=== PATIENT | female | born 1950 | race Caucasian/White ===

== ENCOUNTER 2018-01-24 09:49 | Emergency (ER) | payer MEDICARE, BC ==
[2018-01-24 10:19] VITALS: BP 138/77
--- NOTE | 2018-01-24 10:28 | UC ---
Head Injury HPI - HPI Summary HPI Summary: Patient states that on Monday she was standing on a chair attempting to grab a book from a shelf when she accidentally fell backwards. She states she fell on her back but also hit the back of her head. She had no loss of consciousness. She had no complaints at the time. The Patient noted her back to be sore and she self treated with ibuprofen. On Monday she noted a bout of nausea that resolved and then this morning she had some recurrent nausea as well. She states that she is experiencing some sinus fullness however that is not unusual for her. She denies any headache, visual change, change in speech. She has no current neck or back pain. She has no numbness or tingling to her arms or legs and has no other complaints. - History Of Current Complaint Chief Complaint: UCGeneralIllness Stated Complaint: FALL/NAUSEA Time Seen by Provider: 01/24/18 10:21 Hx Obtained From: Patient Hx Last Menstrual Period: ~2006 Pain Intensity: 3 Aggravating Factor(s): Nothing Alleviating Factor(s): Nothing Associated Signs And Symptoms: Positive: Nausea. Negative: LOC (Time In Secs./ Mins/Hrs), Confusion, Memory Loss, Seizure, Neck Pain, Vomiting - Risk Factors SDH Risk Factor: Recent Trauma, Elderly - Allergies/Home Medications Allergies/Adverse Reactions: Allergies Allergy/AdvReac Type Severity Reaction Status Date / Time No Known Allergies Allergy Verified 01/24/18 10:15 Home Medications: Home Medications Ibuprofen TAB* [Advil TAB*] 600 mg PO Q12H PRN 01/24/18 [History Confirmed 01/24] PMH/Surg Hx/FS Hx/Imm Hx Neurological History: Migraine - Surgical History Surgical History: Yes Surgery Procedure, Year, and Place: Benign Breast Biopsy, 2017, [facility]; Left Knee Meniscus Arthroscopy, 2014, [facility]; D&C, 2007, [facility]; Tonsillectomy, ~ 1957, [facility] - Family History Known Family History: Positive: None - Social History Occupation: Retired Lives: With Family Alcohol Use: Weekly Substance Use Type: None Smoking Status (MU): Never Smoked Tobacco - Immunization History Vaccination Up to Date: Yes Review of Systems Constitutional: Negative Skin: Negative Eyes: Negative ENT: Sinus Congestion Respiratory: Negative Cardiovascular: Negative Gastrointestinal: Nausea - none now Genitourinary: Negative Motor: Negative Neurovascular: Negative Musculoskeletal: Negative Neurological: Negative Psychological: Negative Is Patient Immunocompromised?: No All Other Systems Reviewed And Are Negative: Yes Physical Exam Triage Information Reviewed: Yes Appearance: Well-Appearing Vital Signs: Initial Vital Signs Temp 98.2 F 01/24/18 10:11 Pulse 76 01/24/18 10:11 Resp 14 01/24/18 10:11 BP 138/77 01/24/18 10:11 Pulse Ox 99 01/24/18 10:11 Vital Signs Reviewed: Yes Eyes: Positive: Conjunctiva Clear, Other: - PERRL, EOMI ENT: Positive: Pharynx normal, TMs normal. Negative: Nasal drainage Neck: Positive: Supple, Nontender, No Lymphadenopathy, Other: - c-spine non tender Respiratory: Positive: Lungs clear, Normal breath sounds Cardiovascular: Positive: RRR, No Murmur Abdomen Description: Positive: Nontender, No Organomegaly, Soft Bowel Sounds: Positive: Present Musculoskeletal: Positive: ROM Intact, Other: - Back non tender Neurological: Positive: Other: - Alert and oriented to person place and time. Status post cataract both eyes. Otherwise cranial nerves are grossly intact. Performs rapid alternating moves with ease. Normal steady gait. Negative Romberg. Negative pronator drift. 5 out of 5 strength and 2+ reflexes 4. Psychological: Positive: Age Appropriate Behavior Skin Exam: Normal Diagnostics - Radiology No standard instances Xray Interpretation: No Acute Changes Radiology Interpretation Completed By: Radiologist - CT brain Head Injury Course/Dx - Course Course Of Treatment: pt declined pain and nausea medications at time of exam. ct unremarkable, neuro exam reassuring. c/w concussion. - Differential Dx/Diagnosis Differential Diagnosis/HQI/PQRI: Concussion Without LOC, Intracranial Bleed Provider Diagnoses: Concussion Discharge - Sign-Out/Discharge Documenting (check all that apply): Discharge/Admit/Transfer - Discharge Plan Condition: Stable Disposition: HOME Patient Education Materials: Concussion (ED) Referrals: Maggy Lane MD [Primary Care Provider] - 2 Days - Billing Disposition and Condition Condition: STABLE Disposition: HOME
--- NOTE | 2018-01-24 11:06 | RAD ---
INDICATION: Intracranial injury COMPARISON: None TECHNIQUE: Noncontrast axial source images were acquired from the skull base to the vertex. FINDINGS: Ventricles/sulci: The ventricles and cisterns are normal in size and configuration for age. Brain parenchyma: There is no focal parenchymal finding, evidence of intracranial mass, or intracranial mass effect. Intracranial hemorrhage:None. Extra-axial spaces: There are no abnormal extra axial fluid collections or evidence of extra-axial mass. Calvarium: There is no calvarial fracture or other calvarial abnormality. Scalp: There is no evidence of scalp or extracalvarial soft tissue abnormality. Paranasal sinuses/mastoid: The paranasal sinuses and mastoid air cells are clear. Other: None. IMPRESSION: No acute intracranial findings.
== END 2018-01-24 11:15 | disposition home or self-care (01) ==
LOC: UCCORT 09:49
DX: S06.0X9A Concussion with loss of consciousness of unspecified duration, initial encounter (principal); W07.XXXA Fall from chair, initial encounter; Y93.89 Activity, other specified; Y92.9 Unspecified place or not applicable
CPT/HCPCS: 70450; 99211; G0463

== ENCOUNTER 2018-02-13 10:44 | Emergency (ER) | payer MEDICARE, BC ==
[2018-02-13 11:21] VITALS: BP 143/86
--- NOTE | 2018-02-13 11:46 | UC ---
Lower Extremity/Ankle HPI - HPI Summary HPI Summary: left thigh pain x 2 days has been doing lots of yard work no swelling, no redness, not a smoker, no recent travel - History of Current Complaint Chief Complaint: UCLowerExtremity Stated Complaint: L LEG PAIN S/P CONC Time Seen by Provider: 02/13/18 11:27 Hx Obtained From: Patient Hx Last Menstrual Period: ~2006 Onset/Duration: Gradual Onset, Lasting Days - 2, Still Present Severity Initially: Mild Severity Currently: Mild Pain Intensity: 2 Aggravating Factor(s): Standing, Ambulation Alleviating Factor(s): Rest, Elevation Able to Bear Weight: Yes - Risk Factors DVT Risk Factors: Negative - Allergies/Home Medications Allergies/Adverse Reactions: Allergies Allergy/AdvReac Type Severity Reaction Status Date / Time No Known Allergies Allergy Verified 02/13/18 11:23 Home Medications: Home Medications Acetaminophen [Pain Relief] 100 mg PO ONCE PRN 02/13/18 [History Confirmed 02/13] PMH/Surg Hx/FS Hx/Imm Hx Previously Healthy: Yes - Surgical History Surgical History: Yes Surgery Procedure, Year, and Place: Benign Breast Biopsy, 2016, [facility]; Left Knee Meniscus Arthroscopy, 2014, [facility]; D&C, 2007, [facility]; Tonsillectomy, ~ 8, [facility] - Family History Known Family History: Positive: None Negative: Diabetes - Social History Alcohol Use: Weekly Alcohol Amount: 1-2 Substance Use Type: None Smoking Status (MU): Never Smoked Tobacco - Immunization History Vaccination Up to Date: Yes Review of Systems Constitutional: Negative Skin: Negative Eyes: Negative ENT: Negative Respiratory: Negative Cardiovascular: Negative Is Patient Immunocompromised?: No All Other Systems Reviewed And Are Negative: Yes Physical Exam Triage Information Reviewed: Yes Appearance: Well-Appearing, No Pain Distress, Well-Nourished Vital Signs: Initial Vital Signs Temp 99.2 F 02/13/18 11:13 Pulse 77 02/13/18 11:13 Resp 18 02/13/18 11:13 BP 143/86 02/13/18 11:13 Pulse Ox 96 02/13/18 11:13 Vital Signs Reviewed: Yes Eyes: Positive: Conjunctiva Clear ENT: Positive: Normal ENT inspection, Hearing grossly normal, Pharynx normal Neck: Positive: Supple, Nontender, No Lymphadenopathy Respiratory: Positive: Chest non-tender, Lungs clear, Normal breath sounds Cardiovascular: Positive: RRR, No Murmur, Pulses Normal Musculoskeletal: Positive: Strength Intact, ROM Intact, No Edema, Other: - left thigh: no swelling, no erythema, no tednerness, good rom with normal strength Lower Extremity Course/Dx - Differential Dx/Diagnosis Provider Diagnoses: left thigh strain Discharge - Sign-Out/Discharge Documenting (check all that apply): Discharge/Admit/Transfer - Discharge Plan Condition: Stable Disposition: HOME Patient Education Materials: Muscle Strain (ED) Referrals: Maggy Lane MD [Primary Care Provider] - 7 Days Additional Instructions: no risk factors for DVT/ blood clot cont. with rest, heat / ice, take Ibuprofen as needed for pain follow up if increase in pain , having swelling or redness - Billing Disposition and Condition Condition: STABLE Disposition: Home
== END 2018-02-13 11:54 | disposition home or self-care (01) ==
LOC: UCCORT 10:44
DX: S76.912A Strain of unspecified muscles, fascia and tendons at thigh level, left thigh, initial encounter (principal); X50.0XXA Overexertion from strenuous movement or load, initial encounter; Y93.H2 Activity, gardening and landscaping; Y92.007 Garden or yard of unspecified non-institutional (private) residence as the place of occurrence of the external cause
CPT/HCPCS: 99211; G0463